=== PATIENT | female | born 1975 ===

== ENCOUNTER 2018-01-24 08:45 | Inpatient (IN) | payer OTHER ==
[~2018-01-24] VITALS: Ht 154.9 cm; Wt 42.6 kg
[2018-01-24] MEDS ORDERED: PECID PO (12:51)
[2018-01-24] MEDS ORDERED: FIORICET PO (12:52)
[2018-01-24] MEDS ORDERED: ULTRACET PO (12:53)
[2018-01-24] MEDS ORDERED: INDERAL PO (12:53)
[2018-01-24] MEDS ORDERED: PRILOSE PO (12:53)
== END 2018-01-30 09:34 | disposition home or self-care (01) | DRG 331 ==
LOC: SURH 01-25 08:45 → O/R 01-25 09:00 → SURH 01-25 11:00
PROVIDERS: Colon & Rectal Surgery
PROC: 0DJD8ZZ Inspection of Lower Intestinal Tract, Via Natural or Artificial Opening Endoscopic (ICD-10-PCS; 2018-01-25)
PROC: 0DTN4ZZ Resection of Sigmoid Colon, Percutaneous Endoscopic Approach (ICD-10-PCS; principal; 2018-01-25 11:00)
DX: K57.32 Diverticulitis of large intestine without perforation or abscess without bleeding (principal); K29.60 Other gastritis without bleeding

== ENCOUNTER 2018-08-23 06:35 | Day surgery (SDC) | payer OTHER ==
[~2018-08-23 06:35] MED LIST: FIORICET PO; INDERAL PO; PECID PO; PRILOSE PO; ULTRACET PO
== END 2018-08-23 11:55 | disposition home or self-care (01) ==
LOC: AMB-ENDOS 06:35
DX: K57.30 Diverticulosis of large intestine without perforation or abscess without bleeding (principal); K64.8 Other hemorrhoids